=== PATIENT | female | born 1990 ===

== ENCOUNTER → 2022-10-26 08:04 | Outpatient (CLI) | payer BC, SELFPAY ==
--- NOTE | ~2022-10-26 | US_ITS ---
EXAMINATION: US transvaginal DATE: 10/26/2022 08:34 INDICATION: Hypertrophy of the uterus TECHNIQUE: Multiple endovaginal sonographic images of the pelvis were obtained. COMPARISON: None. FINDINGS: The uterus measures 9.3 x 4.7 x 5.9 cm. There appears to be a 2.5 cm intramural fibroid in the uterine fundus. The endometrial complex measures 6 mm. The right ovary measures 3.6 x 2.0 x 3.7 c m. The left ovary measures 4.2 x 2.7 x 2.4 cm. There is normal vascular flow in the ovaries. There is no free fluid in the pelvis. IMPRESSION: 1. Probable uterine fibroid, otherwise unremarkable pelvic ultrasound. Reviewed, dictated and finalized at location L. NSION SPECIFICATION INSPECTOR
== END ==
PROVIDERS: PCP Advanced Practice Midwife; Visit Provider Advanced Practice Midwife
DX: N85.2 Hypertrophy of uterus (principal)
CPT/HCPCS: 76830

== ENCOUNTER → 2023-10-21 09:13 | Outpatient (CLI) | payer OTHER, SELFPAY ==
--- NOTE | ~2023-10-21 | US_ITS ---
Pelvic ultrasound. Clinical History: Uterine fibroid COMPARISON: 10/26/2022 Technique: Realtime transvaginal scanning of the pelvis was performed. Color flow Doppler and Doppler spectral analysis were performed. Findings: The uterus is anteverted. The endometrial stripe has a thickness of 14 mm. Anterior wall l ower uterine segment fibroid measures 2.2 cm in diameter. The right ovary measures 3.4 x 1.9 x 3.2 cm. No significant right ovarian or adnexal mass is seen. The left ovary measures 3.8 x 2.6 x 1.8 cm. No significant left ovarian or adnexal mass is seen. Vascular flow present in both ovaries on Doppler spectral analysis. There is no evidence of free fluid in the cul de sac. Impression: 2.2 cm anterior wall fibroid, similar to prior exam. Reviewed, dictated and finalized at [facility]. CIATE PROFESSOR OF BIOLOGY Impression: 2.2 cm anterior wall fibroid, similar to prior exam.
== END ==
PROVIDERS: PCP Advanced Practice Midwife; Visit Provider Advanced Practice Midwife
DX: D25.9 Leiomyoma of uterus, unspecified (principal)
CPT/HCPCS: 76830

== ENCOUNTER → 2023-11-16 10:49 | Outpatient (CLI) | payer OTHER, SELFPAY ==
--- NOTE | ~2023-11-16 | US_ITS ---
EXAMINATION: US OB <= 14 weeks fetus DATE: 11/16/2023 11:13 INDICATION: viability. TECHNIQUE: Real-time transabdominal pelvic ultrasound was performed. COMPARISON: None. FINDINGS: The uterus measures 12.5 x 7.1 x 8.4 cm. There is an intrauterine gestational sac. A yolk sac is iden tified. The crown rump length measures 6 mm, which correlates with an estimated gestational ag e of 6 weeks and 3 day(s) (+/-) 4 day(s). heart motion is identified measuring 120 beats per mi nute (bpm) by M-mode Doppler. There is a 2.8 cm intramural fibroid. The right ovary measures 2.9 x 1. 8 x 2.1 cm. The left ovary measures 2.6 x 1.8 x 2.6 cm. There is no free fluid in the pelvis. IMPRESSION: 1. Single living intrauterine gestation with estimated date of delivery of 07/08/2024. 2. Uterine fibroid. Reviewed, dictated and finalized at location A. RVISOR [employer] YE[employer] IMPRESSION: 1. Single living intrauterine gestation with estimated date of delivery of 06/18. 2. Uterine fibroid.
== END ==
PROVIDERS: PCP Advanced Practice Midwife; Visit Provider Advanced Practice Midwife
DX: O26.851 Spotting complicating pregnancy, first trimester (principal); O36.80X0 Pregnancy with inconclusive fetal viability, not applicable or unspecified; D25.1 Intramural leiomyoma of uterus; Z3A.00 Weeks of gestation of pregnancy not specified
CPT/HCPCS: 76801

== ENCOUNTER 2024-02-20 08:35 | Outpatient (CLI) | payer OTHER, SELFPAY ==
--- NOTE | ~2024-02-20 | US_ITS ---
EXAMINATION: US OB /maternal detail DATE: 02/20/2024 09:23 INDICATION: anatomy scan during second trimester of TECHNIQUE: Multiple obstetric sonographic images performed. FINDINGS: There is a single living fetus in vertex presentation. The placenta is posterior and not low-lying w ith caudal margin 8.1 cm from the internal cervical os. Cervix is suboptimally visualized with length estimated at 4.2 cm. Amniotic fluid volume is subjectively normal. heart rate of 153 beats pe r minute. The following anatomy was identified as normal: Ventricles, choroid plexus, falx and cava septum pellucidum Cerebellum and cisterna magna Nuchal fold Upper lip Spine Normal four-chamber heart and left ventricular outflow tract views. Right ventricular outflow tract v iew is nondiagnostic. Diaphragm Stomach Kidneys Bladder 3 vessel cord and cord insertion Bilateral upper and lower extremities including hands and feet The following biometric data were obtained: BPD: 4.9 cm -> 20 weeks 5 days Head circumference: 17.8 cm -> 20 weeks 2 days Abdominal circumference: 15.4 cm -> 50 weeks 4 days Femur length: 3.1 cm -> 19 weeks 3 days These measurements are concordant. Head circumference to abdominal circumference ratio: 1.16 (normal range 1.07-1.25). Estimated weight: 332 g (+/-) 50 g. or 12 oz. (+/-) 2 oz. IMPRESSION: 1. Single living fetus with vertex presentation with heart rate of 153 bpm. 2. Biometric data concordant within 1 day of previously estimated gestational age by ultrasound of 20 weeks 1 day(s) with ultrasound estimated date of delivery (MARTIN) of 07/08/2024. Estimated weight is 43rd percentile by Hadlock criteria when 07/08/2024 is used as the MARTIN. Please correlate with clin ical information or earlier ultrasounds for most accurate MARTIN. 3. Normal survey aside from the nondiagnostic right ventricular outflow tract view with normal left ventricular outflow tract and four-chamber views. Reviewed, dictated and finalized at location A. IMPRESSION: 1. Single living fetus with vertex presentation with heart rate of 153 b pm. 2. Biometric data concordant within 1 day of previously estimated gestational a ge by ultrasound of 20 weeks 1 day(s) with ultrasound estimated date of deliver y (MARTIN) of 07/08/2024. Estimated weight is 43rd percentile by Hadlock crit eria when 07/08/2024 is used as the MARTIN. Please correlate with clinical informat ion or earlier ultrasounds for most accurate MARTIN. 3. Normal survey aside from the nondiagnostic right ventricular outflow t ract view with normal left ventricular outflow tract and four-chamber views.
== END 2024-02-20 08:36 ==
LOC: MICIMG 08:36
PROVIDERS: PCP Advanced Practice Midwife; Visit Provider Advanced Practice Midwife
DX: Z36.9 Encounter for antenatal screening, unspecified (principal)
CPT/HCPCS: 76805